=== PATIENT | male | born 1985 | race Two or more races ===

== ENCOUNTER 2024-06-11 02:50 | Emergency (ER) | payer MEDICAID, SELFPAY ==
[2024-06-11 02:51] VITALS: BMI 30.7
[2024-06-11 03:11] VITALS: BP 149/88; PULSE 91; RESP 18; TEMP 36.7; O2SAT 98
--- NOTE | 2024-06-11 03:59 | PD.EDSKIN ---
ED Skin Abcess FB-RME/HPI General Chief complaint: Skin/Abscess/Foreign Body Stated complaint: Rash on bilateral arms and legs Time Seen by Provider: 06/11/24 02:55 Arrival date/time: 06/11/24 02:50 38-year-old male reports with complaints of itchy rashes diffusely over skin. Patient states that he has had rashes on his hands for which he has been using steroid cream for some time with no improvement of symptoms. Patient states that a few days ago he was removing some brush and soon after he noticed the rash on his body. Patient states that has been taking [id number] medications with no improvement of symptoms he has no known allergies and is uncertain of what the brush was when he removed it. Patient denies any tongue or throat swelling shortness of breath fever or chills. Limitations: no limitations Related Data Allergies Allergy/AdvReac Type Severity Reaction Status Date / Time No Known Allergies Allergy Verified 06/11/24 02:53 Review of Systems Constitutional Constitutional: Denies chills, Denies fever(s) and Denies headache(s) ENT Ears, Nose, Mouth, and Throat: Denies headache(s), Denies throat swelling, Denies tongue swelling and Denies vertigo Cardiovascular Cardiovascular: Denies chest pain at rest and Denies dyspnea Respiratory Respiratory: Denies cough and Denies dyspnea Musculoskeletal Musculoskeletal: Denies arthralgias and Denies joint swelling Integumentary/Breasts Skin/Breast: Reports pruritus and Reports rash Neurologic Neurologic: Denies headache(s) and Denies vertigo Psychiatric Psychiatric: Denies anxiety and Denies depression Allergic/Immunologic Allergic/Immunologic: Denies throat swelling and Denies tongue swelling Past Medical History Social History SMOKING STATUS: Current some day smoker ED Exam General Limitations: Present no limitations General appearance: Present alert and in no apparent distress Head Head exam: Present atraumatic Eye Eye exam: Present normal appearance, PERRL and EOMI ENT ENT exam: Present normal exam, normal oropharynx and mucous membranes moist Neck Neck exam: Present normal inspection, full ROM and trachea midline Chest Chest inspection: Present normal inspection and symmetric chest wall rise Respiratory Respiratory exam: Present normal lung sounds bilaterally Cardiovascular Cardiovascular exam: Present regular rate, normal rhythm and normal heart sounds Abdominal Exam Abdominal exam: Present soft and normal bowel sounds Extremities Exam Extremities exam: Present normal inspection and full ROM Back Exam Back exam: Present normal inspection and full ROM Neurological Exam Neurological exam: Present alert, oriented X3 and CN II-XII intact Psychiatric Psychiatric exam: Present normal affect and normal mood Skin Skin exam: Present warm, dry, intact and rash (scattered flesh colored papules on upper extremities; large erythematous plaques on upper and lower extremities and trunk, no d/c noted ) Course Quality Measures none Orders Category Date Time Status Dexamethasone Inj [Decadron Inj] Med 06/11/24 03:55 Discontinued 10 mg IM X1 ONE Vital Signs Vital signs: Vital Signs Temperature 98.1 F 06/11/24 03:11 Pulse Rate 91 06/11/24 03:11 Respiratory Rate 18 06/11/24 03:11 Blood Pressure 149/88 H 06/11/24 03:11 Pulse Oximetry (%) 98 06/11/24 03:11 Oxygen Delivery Method Room Air 06/11/24 03:11 Skin / Abscess / Foreign Body Patient data External records reviewed:: None Clinical information provided by:: patient Social determinants that could affect healthcare access:: none Patient has the following chronic illnesses:: none How is presenting disease/condition affected by chronic disease/condition?: no chronic disease Evaluation data The following diagnostics were reviewed and interpreted by me:: other (specify) (none) Lab and/or radiology exams considered but not ordered:: none Interpretation Summary: n/a Medications / Prescriptions Medications or Prescriptions considered but not ordered:: none Medication administrations:: Medication Administration History Discontinued Medications Dexamethasone Sodium Phosphate (Dexamethasone Sod Phos Inj 10 Mg/Ml Vial) 10 mg IM X1 ONE Stop: 06/11/24 03:56 as above Consultations Consultation(s) initiated? (list below): No Diagnosis Skin/Abscess Differential Diagnosis: urticaria, eczema, insect bites and contact dermatitis Most likely diagnosis given after review of the tests above:: contact dermatitis Admission Indicated Admission indicated?: not indicated Admission Request Was there a request for admission?: No Disposition Plan Disposition Plan: Discharge Discharge Attestation Discharge Attestation: The patient and all family members were given an opportunity to ask questions and understood the discharge instructions. Discharge instructions specifically effects, indications for sooner follow up or return to the emergency department, and the expected course of current diagnosis. Patient condition: Stable Discharge Plan Plan Patient Disposition: HOME (Self Care) Problem List Clinical Impression: Contact dermatitis Patient/Caregiver Discharge Instructions Discharge Activity: activity as tolerated Education Materials: Understanding Contact Dermatitis, ED Contact Dermatitis Additional Instructions: Take medication such as Benadryl hydrate your skin really well follow-up with your primary care provider for referral to an farmworker diversified crops Print Language: Pakistani Stand Alone Forms: Elizabeth Award Info., Patient Portal Info Letter
[2024-06-11] MEDS: DEXAMETHASONE SOD PHOS INJ 10 MG/ML VIAL IM (04:07)
== END 2024-06-11 08:33 | disposition home or self-care (01) ==
LOC: SERX 05:39
PROVIDERS: Emergency Provider Emergency Medicine; PCP Family Medicine
DX: L25.9 Unspecified contact dermatitis, unspecified cause (principal)
CPT/HCPCS: 96372; 99283; J1100

== ENCOUNTER 2024-09-09 14:09 | Emergency (ER) | payer SELFPAY ==
[2024-09-09 14:09] VITALS: BMI 32.1
[2024-09-09 14:57] VITALS: BP 139/89; PULSE 106; RESP 18; TEMP 37; O2SAT 99; BMI 30.7
--- NOTE | 2024-09-09 15:08 | PD.EDANIML ---
ED Animal Bite RME/HPI General Chief Complaint: Animal Bite Stated Complaint: SPIDER BITE BEHIND R KNEE X1 DAY Time Seen by Provider: 09/09/24 14:25 Arrival date/time: 09/09/24 14:09 This is a 38-year-old male that comes in with complaints of redness and swelling to his right upper inner thigh. Patient states that he thinks he got bit by something. Patient denies any fever or chills. Related Data Previous Rx's ?Medication ?Instructions ?Recorded cephalexin 500 mg capsule 500 mg PO QID 7 days #28 caps 09/09/24 doxycycline hyclate 100 mg tablet 100 mg PO BID 7 days #14 tabs 09/09/24 ibuprofen 800 mg tablet 800 mg PO Q6H PRN pain #14 tabs 09/09/24 Allergies Allergy/AdvReac Type Severity Reaction Status Date / Time No Known Allergies Allergy Verified 09/09/24 14:12 Course Vital Signs Vital signs: Vital Signs Temperature 98.6 F 09/09/24 14:57 Pulse Rate 106 H 09/09/24 14:57 Respiratory Rate 18 09/09/24 14:57 Blood Pressure 139/89 H 09/09/24 14:57 Pulse Oximetry (%) 99 09/09/24 14:57 Oxygen Delivery Method Room Air 09/09/24 14:57 Animal Bite MDM Narrative MDM Narrative:: Spoke to patient about labs and ultrasound for further workup. Patient just wants antibiotics at this time. Patient does not want any labs or any ultrasound at this time. Will treat patient with a dose of Rocephin and some pain medication. Patient told to follow-up with his primary provider in 1 to 2 days. Patient told to come back to the emergency room if symptoms change or worsen. Discharge Plan Plan Patient Disposition: HOME (Self Care) Patient condition on transfer: Stable Prescriptions/Referrals Prescriptions/Med Rec: New ibuprofen 800 mg tablet 800 mg PO Q6H PRN (Reason: pain) Qty: 14 0RF doxycycline hyclate 100 mg tablet 100 mg PO BID 7 Days Qty: 14 0RF cephalexin 500 mg capsule 500 mg PO QID 7 Days Qty: 28 0RF Problem List Clinical Impression: Cellulitis Patient/Caregiver Discharge Instructions Discharge Activity: activity as tolerated Education Materials: ED Cellulitis Additional Instructions: Follow up with primary provider in 1-2 days. Come back to ED if symptoms change or worsen Print Language: Romanian Stand Alone Forms: Elizabeth Award Info., Patient Portal Info Letter PA/HORTICULTURALIST Supervising Physician PA/HORTICULTURALIST Supervising Physician: jono
[2024-09-09] MEDS: DOXYCYCLINE 100 MG TABLET PO (16:05)
[2024-09-09] MEDS: ACETAMINOPHEN 500 MG TABLET 1000 MG PO (16:05)
[2024-09-09] MEDS: KETOROLAC INJ 60 MG/2 ML VIAL IM (16:05)
[2024-09-09] MEDS: ONDANSETRON ODT 4 MG TABRAP PO (16:05)
[2024-09-09] MEDS: cefTRIAXone 1,000 MG, LIDOCAINE 1% 20 ML 2.1 ML IM (16:06)
== END 2024-09-09 16:33 | disposition home or self-care (01) ==
LOC: SERX 16:54
PROVIDERS: Emergency Provider Emergency Medicine
DX: L03.115 Cellulitis of right lower limb (principal)
CPT/HCPCS: 96372; 99283; J0696; J1885; J3490; Q0162; A9270

== ENCOUNTER 2025-02-16 09:39 | Emergency (ER) | payer OTHER, SELFPAY ==
[2025-02-16 09:39] VITALS: BMI 33.5
[2025-02-16 10:01] VITALS: BP 147/96; PULSE 87; RESP 18; TEMP 36.6; O2SAT 99
--- NOTE | 2025-02-16 10:11 | XR_ITS ---
Examination: Hand, left Technique: Hand AP, oblique, lateral 3 views Date and time of exam: 02/16/2025 at 10:12 a.m. INDICATION: Patient smashed the fourth digit of the heavy object 3 weeks ago COMPARISON: None FINDINGS: An oblique fracture of the fourth middle phalanx is present with mild displacement. Soft tissue swelling of the fourth finger is present. Elsewhere, no recent fracture. No joint subluxation. Chronic appearing well-corticated heterotopic calcifications are present adjacent to the ulnar styloid. There appears to be positive ulnar variance. No significant osteoarthritic changes detected. IMPRESSION: Mildly displaced oblique fracture of the fourth middle phalanx with regional soft tissue swelling.
--- NOTE | 2025-02-16 10:29 | PD.EDHAND ---
Upper Extremity Injury RME/HPI General Chief Complaint: Hand/Wrist Problems Stated Complaint: SWELLING LEFT 4TH FINGER x 3 WEEKS Time Seen by Provider: 02/16/25 09:43 Source: patient Arrival date/time: 02/16/25 09:39 39-year-old male with no known medical history presents to the emergency room with a chief complaint of swelling and tenderness to the tip of his left fourth finger x 3 weeks Mode of arrival: ambulatory Limitations: no limitations Related Data Previous Rx's ?Medication ?Instructions ?Recorded ibuprofen 800 mg tablet 800 mg PO Q6H PRN pain #14 tabs 09/09/24 Allergies Allergy/AdvReac Type Severity Reaction Status Date / Time No Known Allergies Allergy Verified 02/16/25 09:42 Review of Systems Review of Systems Systems Reviewed: All systems reviewed, normal except as documented Constitutional Constitutional: Reports system reviewed and no additional complaints, except as documented, Denies fatigue, Denies fever(s), Denies headache(s) and Denies weakness Eyes Eyes: Reports system reviewed and no additional complaints, except as documented, Denies blurry vision and Denies change in vision ENT Ears, Nose, Mouth, and Throat: Reports system reviewed and no additional complaints, except as documented, Denies otalgia, Denies headache(s), Denies nasal congestion, Denies throat swelling and Denies vertigo Cardiovascular Cardiovascular: Reports system reviewed and no additional complaints, except as documented, Denies chest pain, Denies dyspnea and Denies dyspnea on exertion Respiratory Respiratory: Reports system reviewed and no additional complaints, except as documented, Denies chest congestion, Denies cough, Denies dyspnea, Denies dyspnea on exertion and Denies wheezing Gastrointestinal Gastrointestinal: Reports system reviewed and no additional complaints, except as documented, Denies abdominal pain, Denies cramping, Denies nausea and Denies vomiting Genitourinary Genitourinary: Reports system reviewed and no additional complaints, except as documented, Denies dysuria and Denies hematuria Musculoskeletal Musculoskeletal: Reports system reviewed and no additional complaints, except as documented, Reports arthralgias, Denies back pain, Reports deformity and Reports joint swelling Integumentary/Breasts Skin/Breast: Reports system reviewed and no additional complaints, except as documented and Denies wounds Neurologic Neurologic: Reports system reviewed and no additional complaints, except as documented, Denies confusion, Denies headache(s), Denies lack of coordination, Denies vertigo and Denies weakness Psychiatric Psychiatric: Reports system reviewed and no additional complaints, except as documented, Denies anxiety, Denies confusion, Denies depression, Denies paranoia, Denies suicidal ideation and Denies tactile hallucinations Endocrine Endocrine: Reports system reviewed and no additional complaints, except as documented and Denies fatigue Hematologic/Lymphatic Hematologic/Lymphatic: Reports system reviewed and no additional complaints, except as documented and Denies lymphadenopathy Allergic/Immunologic Allergic/Immunologic: Reports system reviewed and no additional complaints, except as documented, Denies throat swelling, Denies urticaria and Denies wheezing Past Medical History Past Medical History CARDIAC: Negative Congestive Heart Failure RESPIRATORY: Negative Chronic Obstructive Pulmonary Disease (COPD) GENITOURINARY: Negative Renal Disease ENDOCRINE: Negative Diabetes Mellitus Type 1 or Diabetes Mellitus Type 2 Social History SMOKING STATUS: Current every day smoker ED Exam General Limitations: Present no limitations General appearance: Present alert and in no apparent distress Head Head exam: Present atraumatic Eye Eye exam: Present normal appearance, PERRL and EOMI ENT ENT exam: Present normal exam, normal oropharynx and mucous membranes moist Neck Neck exam: Present normal inspection, full ROM and trachea midline Chest Chest inspection: Present normal inspection and symmetric chest wall rise Respiratory Respiratory exam: Present normal lung sounds bilaterally Cardiovascular Cardiovascular exam: Present regular rate, normal rhythm and normal heart sounds Abdominal Exam Abdominal exam: Present soft and normal bowel sounds Extremities Exam Extremities exam: Present normal inspection and full ROM Expanded Upper Extremity Exam Shoulder exam: Present normal inspection Arm exam: Present normal inspection Elbow exam: Present normal inspection Forearm/Wrist exam: Present normal inspection Hand exam: Present full ROM, tenderness and swelling Back Exam Back exam: Present normal inspection and full ROM Neurological Exam Neurological exam: Present alert, oriented X3 and CN II-XII intact Psychiatric Psychiatric exam: Present normal affect and normal mood Skin Skin exam: Present warm, dry, intact and normal color Course Quality Measures none Orders Category Date Time Status XR hand comp LT min 3V Stat Exams 02/16/25 10:11 Completed Vital Signs Vital signs: Vital Signs Temperature 98 F 02/16/25 10:01 Pulse Rate 87 02/16/25 10:01 Respiratory Rate 18 02/16/25 10:01 Blood Pressure 147/96 H 02/16/25 10:01 Pulse Oximetry (%) 99 02/16/25 10:01 Oxygen Delivery Method Room Air 02/16/25 10:01 Extremity Injury MDM Narrative MDM Narrative:: 39-year-old male with no known medical history presents to the emergency room with a chief complaint of swelling and tenderness to the tip of his left fourth finger x 3 weeks Patient is hemodynamically stable and in no apparent distress Physical examination shows tenderness and swelling to the tip of the left fourth digit. Patient states his injuries been going on for the last 2 weeks X-ray of the left hand was completed and shows a mildly displaced oblique fracture of the fourth middle phalanx. A finger splint was given to the patient and the patient was educated to follow-up with primary care provider Patient was discharged and educated to follow-up with primary care provider in the next 24 to 48 hours and return to the emergency room for any evidence of worsening signs or symptoms Patient data External records reviewed:: [facility] previous records Clinical information provided by:: patient Social determinants that could affect healthcare access:: none Patient has the following chronic illnesses:: No chronic illness How is presenting disease/condition affected by chronic disease/condition?: no chronic disease Evaluation data The following diagnostics were reviewed and interpreted by me:: lab results and radiology exam(s) Lab and/or radiology exams considered but not ordered:: Labs and radiology exams considered and ordered Interpretation Summary: X-ray hand-FINDINGS: An oblique fracture of the fourth middle phalanx is present with mild displacement. Soft tissue swelling of the fourth finger is present. Elsewhere, no recent fracture. No joint subluxation. Chronic appearing well-corticated heterotopic calcifications are present adjacent to the ulnar styloid. There appears to be positive ulnar variance. No significant osteoarthritic changes detected. IMPRESSION: Mildly displaced oblique fracture of the fourth middle phalanx with regional soft tissue swelling. Medications / Prescriptions Medications or Prescriptions considered but not ordered:: No medication given Medication administrations:: No medication given Consultations Consultation(s) initiated? (list below): No Diagnosis Upper Extremity Injury Differential Diagnosis: finger sprain, dislocation of finger and fracture of hand Most likely diagnosis given after review of the tests above:: Finger fracture Admission Indicated Admission indicated?: not indicated Admission Request Was there a request for admission?: No Disposition Plan Disposition Plan: Discharge Discharge Attestation Discharge Attestation: The patient and all family members were given an opportunity to ask questions and understood the discharge instructions. Discharge instructions specifically effects, indications for sooner follow up or return to the emergency department, and the expected course of current diagnosis. Patient condition: Stable Discharge Plan Plan Patient Disposition: HOME (Self Care) Discharge Disposition comment: Stable Prescriptions/Referrals Prescriptions/Med Rec: No Action ibuprofen 800 mg tablet 800 mg PO Q6H PRN (Reason: pain) Qty: 14 0RF Problem List Clinical Impression: Finger fracture, left Patient/Caregiver Discharge Instructions Education Materials: ED Fracture, Finger, Closed Additional Instructions: Please follow-up with your primary care provider in the next 24 to 48 hours X-rays of your finger showed a fracture to the tip of your fourth digit. Please keep your finger splint in place. Please follow-up with your Workmen's Comp. doctor for further management Patient was discharged and educated to follow-up with primary care provider in the next 24 to 48 hours and return to the emergency room for any evidence of worsening signs or symptoms Print Language: Citizen Of [place] Stand Alone Forms: Elizabeth Award Info., Work/School Release, Patient Portal Info Letter PA/KARAN Supervising Physician PA/KARAN Supervising Physician: Dr. Ahn
== END 2025-02-16 11:19 | disposition home or self-care (01) ==
LOC: SERX 10:50
PROVIDERS: Emergency Provider Nurse Practitioner Family; PCP Family Medicine
DX: S62.625A Displaced fracture of middle phalanx of left ring finger, initial encounter for closed fracture (principal); X58.XXXA Exposure to other specified factors, initial encounter
CPT/HCPCS: 73130; 99282